=== PATIENT | female | born 1980 | race Caucasian/White ===

== ENCOUNTER 2019-07-02 08:16 | Emergency (ER) | payer MEDICAID ==
[~2019-07-02] VITALS: Ht 162.6 cm; Wt 140.9 kg
[~2019-07-02 08:16] MED LIST: BUSPIRONE5 MG PO; CEPHALEXIN500 MG PO; CIPROFLOXACN500 MG PO; DEPAKOTE500 MG PO; DITROPAN PO; FIORICET PO; FLEXERIL OR; KLONOPIN0.5 MG PO; MEDDOSEPAK PO; NAPROSYN500 MG PO; NO HOME MEDS; RANITIDINE150 MG PO; REXULTI2 MG PO; TOPAMAX50 MG OR; TOPIRAMATE50 MG PO; TRAZODONE100 MG OR; ULTRAM50 M1 PO; XANAX0.5 MG PO
[2019-07-02 09:16] VITALS: BP 147/80
== END 2019-07-02 09:16 | disposition home or self-care (01) ==
LOC: ED 08:16
DX: J32.9 Chronic sinusitis, unspecified (principal); F17.290 Nicotine dependence, other tobacco product, uncomplicated

== ENCOUNTER 2019-07-14 10:04 | Emergency (ER) | payer OTHER ==
[~2019-07-14] VITALS: Ht 162.6 cm; Wt 140.5 kg
[2019-07-14 11:07] LABS: HEMATOCRIT 40.4 % (37.0-47.0); HEMOGLOBIN 13.1 g/dl (12.0-16.0); IMMATURE GRANULOCYTES 0.4 % (0.0-5.0); MEAN CELL VOLUME 92.4 fL CALC (80.0-100.0); MEAN CORPUSCULAR HGB CONC 32.4 g/L CALC (32.0-36.0); NEUT# 8.54 thou/uL (2.00-7.15); RED BLOOD COUNT 4.37 mill/uL (4.20-5.60); RED CELL DISTRI WIDTH 13.1 % (11.5-15.5)
[2019-07-14 11:25] LABS: ANION GAP 13 (6-22 (CALC)); BUN 11 mg/dL (7-17); BUN/CREATININE RATIO 22 (12-20 (CALC)); CARBON DIOXIDE 26 mmol/l (22-30); CHLORIDE 104 mmol/l (95-108); CREATININE 0.5 mg/dL (0.5-1.0); GFR > 60 ML/MIN (>=60 (CALC)); GFR FOR AFR.AMER. > 60 ML/MIN (>=60 (CALC)); POTASSIUM 4.3 mmol/l (3.5-5.1); SODIUM 138 mmol/l (137-146)
[2019-07-14 11:28] LABS: URINE BILIRUBIN - DIPSTICK NEGATIVE (NEGATIVE); URINE BLOOD DIPSTICK SMALL (NEGATIVE); URINE COLOR YELLOW; URINE GLUCOSE - DIPSTICK NEGATIVE (NEGATIVE); URINE KETONE NEGATIVE (NEGATIVE); URINE LEUK ESTERASE NEGATIVE (NEGATIVE); URINE PH 6.5 (4.5-8.0); URINE PROTEIN - DIPSTICK NEGATIVE (NEG-TRACE); URINE UROBILINOGEN - DIPSTICK 0.2 E.U./dL (0.2)
[2019-07-14 11:30] LABS: URINE NITRITE - DIPSTICK POSITIVE (Negative)
[2019-07-14 11:41] LABS: URINE BACTERIA MANY hpf; URINE SQUAMOUS EPITHELIAL CELL FEW EPI/hpf (0-FEW)
[2019-07-14] MEDS ORDERED: CEPHALEXIN500 M1 PO (12:28)
[2019-07-14 12:30] VITALS: BP 128/69
== END 2019-07-14 12:30 | disposition home or self-care (01) ==
LOC: ED 10:04
PROVIDERS: Family Medicine
DX: R06.02 Shortness of breath (principal); R00.2 Palpitations; F41.9 Anxiety disorder, unspecified; F17.210 Nicotine dependence, cigarettes, uncomplicated; R82.71 Bacteriuria

== ENCOUNTER 2019-10-23 09:41 | Emergency (ER) | payer MEDICAID ==
[~2019-10-23] VITALS: Ht 162.6 cm; Wt 141.0 kg
[~2019-10-23 09:41] MED LIST changes: +CEPHALEXIN500 M1 PO
[2019-10-23 10:37] LABS: HEMATOCRIT 40.7 % (37.0-47.0); IMMATURE GRANULOCYTES 0.5 % (0.0-5.0); MEAN CELL VOLUME 94.4 fL CALC (80.0-100.0); MEAN CORPUSCULAR HGB 30.2 pG CALC (26.0-32.0); MEAN CORPUSCULAR HGB CONC 31.9 g/L CALC (32.0-36.0); NEUT# 9.32 thou/uL (2.00-7.15); RED BLOOD COUNT 4.31 mill/uL (4.20-5.60); RED CELL DISTRI WIDTH 13.8 % (11.5-15.5)
[2019-10-23 10:46] LABS: URINE BILIRUBIN - DIPSTICK NEGATIVE (NEGATIVE); URINE BLOOD DIPSTICK TRACE-INTACT (NEGATIVE); URINE COLOR YELLOW; URINE GLUCOSE - DIPSTICK NEGATIVE (NEGATIVE); URINE KETONE NEGATIVE (NEGATIVE); URINE LEUK ESTERASE NEGATIVE (NEGATIVE); URINE NITRITE - DIPSTICK NEGATIVE (Negative); URINE PROTEIN - DIPSTICK NEGATIVE (NEG-TRACE); URINE SPECIFIC GRAVITY >=1.030; URINE UROBILINOGEN - DIPSTICK 0.2 E.U./dL (0.2)
[2019-10-23 11:04] LABS: ALKALINE PHOSPHATASE 85 u/l (38-126); AMYLASE 43 u/l (30-110); ANION GAP 14 (6-22 (CALC)); BUN 12 mg/dL (7-17); BUN/CREATININE RATIO 25 (12-20 (CALC)); CARBON DIOXIDE 24 mmol/l (22-30); CHLORIDE 106 mmol/l (95-108); CREATININE 0.5 mg/dL (0.5-1.0); GFR > 60 ML/MIN (>=60 (CALC)); GFR FOR AFR.AMER. > 60 ML/MIN (>=60 (CALC)); LIPASE 91 u/l (23-300); POTASSIUM 4.5 mmol/l (3.5-5.1); SGOT/AST 24 u/l (14-36); SODIUM 140 mmol/l (137-146); TOTAL PROTEIN 7.7 g/dL (6.3-8.2)
[2019-10-23 11:05] LABS: BILIRUBIN, TOTAL 0.5 mg/dL (0.0-1.4)
[2019-10-23] MEDS ORDERED: NAPROXEN500 MG PO (12:18)
[2019-10-23 12:43] LABS: BARBITURATES NEGATIVE (NEGATIVE); COCAINE NEGATIVE (NEGATIVE); METHADONE NEGATIVE (NEGATIVE); TETRAHYDROCANNABIONOL POSITIVE (NEGATIVE); TRICYLIC ANTIDEPRESSANTS NEGATIVE (NEGATIVE)
[2019-10-23 12:44] LABS: OXCYCODONE NEGATIVE (NEGATIVE)
[2019-10-23 12:54] VITALS: BP 158/67
== END 2019-10-23 12:54 | disposition home or self-care (01) ==
LOC: ED 09:41
PROVIDERS: Emergency Medicine
DX: N28.1 Cyst of kidney, acquired (principal); F17.210 Nicotine dependence, cigarettes, uncomplicated; Z87.440 Personal history of urinary (tract) infections; Z87.442 Personal history of urinary calculi

== ENCOUNTER 2019-12-05 | Emergency (ER) | payer MEDICAID ==
[~2019-12-05] MED LIST changes: +NAPROXEN500 MG PO
[2019-12-05] MEDS ORDERED: TESSALON PER100 MG PO (17:56)
[2019-12-05] MEDS ORDERED: MEDDOSEPAK PO (17:56)
== END 2019-12-05 18:00 | disposition home or self-care (01) ==
DX: R05 Cough (principal); M54.41 Lumbago with sciatica, right side; F17.210 Nicotine dependence, cigarettes, uncomplicated

== ENCOUNTER 2019-12-06 10:16 | Emergency (ER) | payer SELFPAY ==
[~2019-12-06 10:16] MED LIST changes: +TESSALON PER100 MG PO
[2019-12-06 10:25] VITALS: BP 143/88
[2019-12-07] MEDS ORDERED: ALBUTEROL SUL0.083 % IN (21:05)
[2019-12-07] MEDS ORDERED: TAM75CAP PO (23:51)
== END 2019-12-06 12:56 | disposition left against medical advice (07) | DRG 951 ==
LOC: ED 10:16 → LWOBS 12:55
DX: Z53.21 Procedure and treatment not carried out due to patient leaving prior to being seen by health care provider (principal)

== ENCOUNTER 2019-12-07 | Emergency (ER) | payer MEDICAID ==
[2019-12-07] MEDS ORDERED: ALBUTEROL SUL0.083 % IN (21:05)
[2019-12-07 21:32] LABS: HEMATOCRIT 37.3 % (37.0-47.0); HEMOGLOBIN 11.9 g/dl (12.0-16.0); IMMATURE GRANULOCYTES 0.4 % (0.0-5.0); MEAN CORPUSCULAR HGB 29.7 pG CALC (26.0-32.0); MEAN CORPUSCULAR HGB CONC 31.9 g/L CALC (32.0-36.0); NEUT# 7.78 thou/uL (2.00-7.15); RED BLOOD COUNT 4.01 mill/uL (4.20-5.60); RED CELL DISTRI WIDTH 14.4 % (11.5-15.5)
[2019-12-07 21:47] LABS: ALBUMIN 3.4 g/dL (3.2-5.0); ALKALINE PHOSPHATASE 73 u/l (38-126); AMYLASE 34 u/l (30-110); ANION GAP 13 (6-22 (CALC)); BILIRUBIN, TOTAL 0.3 mg/dL (0.0-1.4); BUN 15 mg/dL (7-17); BUN/CREATININE RATIO 22 (12-20 (CALC)); CARBON DIOXIDE 23 mmol/l (22-30); CHLORIDE 106 mmol/l (95-108); CREATININE 0.7 mg/dL (0.5-1.0); GFR > 60 ML/MIN (>=60 (CALC)); GFR FOR AFR.AMER. > 60 ML/MIN (>=60 (CALC)); LIPASE 98 u/l (23-300); POTASSIUM 3.7 mmol/l (3.5-5.1); SGOT/AST 15 u/l (14-36); SODIUM 138 mmol/l (137-146); TOTAL PROTEIN 6.8 g/dL (6.3-8.2)
[2019-12-07 21:50] LABS: ACT PARTIAL THROMBO TIME 27.4 SECONDS (20.0-32.5); D-DIMER 0.62 mg/L (0.19-0.60); PROTHROMBIN TIME 10.1 SECONDS (9.0-12.5)
[2019-12-07 21:58] LABS: MYOGLOBIN 17 ng/mL (0 - 62)
[2019-12-07] MEDS ORDERED: TAM75CAP PO (23:51)
== END 2019-12-07 23:59 | disposition home or self-care (01) ==
PROVIDERS: Family Medicine
DX: J11.1 Influenza due to unidentified influenza virus with other respiratory manifestations (principal); R07.89 Other chest pain; F17.210 Nicotine dependence, cigarettes, uncomplicated

== ENCOUNTER 2020-09-29 10:57 | Emergency (ER) | payer OTHER ==
[~2020-09-29] VITALS: Ht 162.6 cm; Wt 125.5 kg
[~2020-09-29 10:57] MED LIST changes: +ALBUTEROL SUL0.083 % IN; +TAM75CAP PO
[2020-09-29] MEDS ORDERED: PROTONIX40 M2 PO (11:28)
[2020-09-29 11:55] LABS: HEMATOCRIT 40.4 % (37.0-47.0); HEMOGLOBIN 12.3 g/dl (12.0-16.0); IMMATURE GRANULOCYTES 0.4 % (0.0-5.0); MEAN CELL VOLUME 93.1 fL CALC (80.0-100.0); MEAN CORPUSCULAR HGB 28.3 pG CALC (26.0-32.0); MEAN CORPUSCULAR HGB CONC 30.4 g/dL CAL (32.0-36.0); NEUT# 6.79 thou/uL (2.00-7.15); RED BLOOD COUNT 4.34 mill/uL (4.20-5.60); RED CELL DISTRI WIDTH 14.6 % (11.5-15.5)
[2020-09-29 11:56] LABS: URINE BILIRUBIN - DIPSTICK NEGATIVE (NEGATIVE); URINE BLOOD DIPSTICK TRACE-INTACT (NEGATIVE); URINE COLOR YELLOW; URINE GLUCOSE - DIPSTICK NEGATIVE (NEGATIVE); URINE KETONE 15 mg/dL (NEGATIVE); URINE LEUK ESTERASE NEGATIVE (NEGATIVE); URINE NITRITE - DIPSTICK NEGATIVE (Negative); URINE PH 6.5 (4.5-8.0); URINE PROTEIN - DIPSTICK NEGATIVE (NEG-TRACE); URINE SPECIFIC GRAVITY 1.025
[2020-09-29 12:18] LABS: ALKALINE PHOSPHATASE 83 u/l (38-126); ANION GAP 14 (6-22 (CALC)); BILIRUBIN, TOTAL 0.4 mg/dL (0.0-1.4); BUN 9 mg/dL (7-17); BUN/CREATININE RATIO 17 (12-20 (CALC)); CARBON DIOXIDE 20 mmol/l (22-30); CHLORIDE 112 mmol/l (95-108); CREATININE 0.5 mg/dL (0.5-1.0); GFR > 60 ML/MIN (>=60 (CALC)); GFR FOR AFR.AMER. > 60 ML/MIN (>=60 (CALC)); POTASSIUM 3.9 mmol/l (3.5-5.1); SODIUM 142 mmol/l (137-146)
[2020-09-29 12:19] LABS: ALBUMIN 4.2 g/dL (3.2-5.0); SGOT/AST 42 u/l (14-36); TOTAL PROTEIN 8.2 g/dL (6.3-8.2)
[2020-09-29 13:55] VITALS: BP 123/58
== END 2020-09-29 13:55 | disposition home or self-care (01) ==
LOC: ED 10:57
PROVIDERS: Family Medicine
DX: E86.0 Dehydration (principal); F41.9 Anxiety disorder, unspecified; F17.210 Nicotine dependence, cigarettes, uncomplicated; Z87.440 Personal history of urinary (tract) infections; Z87.442 Personal history of urinary calculi; Z98.84 Bariatric surgery status

== ENCOUNTER 2020-11-18 13:08 | Emergency (ER) | payer OTHER ==
[~2020-11-18] VITALS: Ht 162.6 cm; Wt 113.6 kg
[~2020-11-18 13:08] MED LIST changes: +PROTONIX40 M2 PO
[2020-11-18] MEDS ORDERED: SYMBICORT 80-4.5MCG IN (13:44)
[2020-11-18 14:18] LABS: HEMATOCRIT 39.5 % (37.0-47.0); HEMOGLOBIN 11.9 g/dl (12.0-16.0); IMMATURE GRANULOCYTES 0.5 % (0.0-5.0); MEAN CELL VOLUME 89.8 fL CALC (80.0-100.0); MEAN CORPUSCULAR HGB CONC 30.1 g/dL CAL (32.0-36.0); NEUT# 2.6 thou/uL (2.00-7.15); RED BLOOD COUNT 4.4 mill/uL (4.20-5.60)
[2020-11-18] MEDS ORDERED: BREO ELLIPTA1 INH IN (14:22)
[2020-11-18] MEDS ORDERED: QVAR REDIH80 MCG/ACT IN (14:22)
[2020-11-18 14:40] LABS: ALBUMIN 3.8 g/dL (3.2-5.0); ALKALINE PHOSPHATASE 72 u/l (38-126); BILIRUBIN, TOTAL 0.4 mg/dL (0.0-1.4); BUN 9 mg/dL (7-17); BUN/CREATININE RATIO 17 (12-20 (CALC)); CHLORIDE 107 mmol/l (95-108); CREATININE 0.5 mg/dL (0.5-1.0); GFR > 60 ML/MIN (>=60 (CALC)); GFR FOR AFR.AMER. > 60 ML/MIN (>=60 (CALC)); SGOT/AST 33 u/l (14-36); SODIUM 142 mmol/l (137-146); TOTAL PROTEIN 7.3 g/dL (6.3-8.2)
[2020-11-18 14:44] LABS: ANION GAP 11 (6-22 (CALC))
[2020-11-18 14:45] LABS: CARBON DIOXIDE 27 mmol/l (22-30)
[2020-11-18 15:20] LABS: URINE BLOOD DIPSTICK NEGATIVE (NEGATIVE); URINE COLOR YELLOW; URINE GLUCOSE - DIPSTICK NEGATIVE (NEGATIVE); URINE KETONE TRACE mg/dL (NEGATIVE); URINE LEUK ESTERASE NEGATIVE (NEGATIVE); URINE NITRITE - DIPSTICK NEGATIVE (Negative); URINE PROTEIN - DIPSTICK NEGATIVE (NEG-TRACE); URINE SPECIFIC GRAVITY 1.025
[2020-11-18 15:25] LABS: URINE BILIRUBIN - DIPSTICK NEGATIVE (NEGATIVE)
[2020-11-18 15:34] LABS: URINE AMORPH SEDIMENT FEW hpf (NONE-FEW); URINE RBC 0-2 RBC/hpf (0-5); URINE SQUAMOUS EPITHELIAL CELL FEW EPI/hpf (0-FEW)
[2020-11-18 15:52] VITALS: BP 133/67
[2020-11-18] MEDS ORDERED: ZPAK PO (15:54)
[2020-11-18] MEDS ORDERED: DECADRON2 MG PO (15:54)
== END 2020-11-18 16:08 | disposition home or self-care (01) ==
LOC: ED 13:08
DX: U07.1 COVID-19 (principal); J40 Bronchitis, not specified as acute or chronic; R43.9 Unspecified disturbances of smell and taste; F41.9 Anxiety disorder, unspecified; F17.200 Nicotine dependence, unspecified, uncomplicated